=== PATIENT | female | born 1960 | race Caucasian/White ===

== ENCOUNTER 2021-07-05 00:13 | Day surgery (SDC) | payer BC, SELFPAY ==
[2021-06-22 14:18] VITALS: BMI 32.2
--- NOTE | 2021-07-05 07:34 | P.PNAN_ITS ---
Anes - Initial Pre Proc Eval Procedure: Operation Date: 07/05/21 09:00 Proposed Procedures p Screening Colonoscopy - Renzo Thompson MD Date/Time: 07/05/21 07:34 Surgeon: Renzo Thompson MD Pre Op Diagnosis: neoplasm screening Patient Data Age: 61 Gender: F Height: 1.57 m Weight: 80 kg Allergies Allergy/AdvReac Type Severity Reaction Status Date / Time No Known Allergies Allergy Unknown Verified 07/05/21 08:05 Home Medications Medication Instructions Recorded Confirmed Type escitalopram oxalate 20 mg tablet 30 mg PO DAILY tablet 12/23/19 07/05/21 History meclizine 25 mg tablet 25 mg PO TID #30 tablet 12/23/19 07/05/21 Rx Patient hx anesthesia problems: none Family hx anesthesia problems: none Results Review: All pre-operative results and documents have been reviewed as part of the pre-operative evaluation. [facility] Past Medical History Medical History (Updated 07/05/21 @ 08:23 by Renzo Thompson MD) Anxiety Asthma Hypertension SAURABH (obstructive sleep apnea) Surgical History Surgical History (Updated 07/05/21 @ 07:35 by Mohinder Ventura DO) History of History of hysterectomy Social History Social History Smoking packs per day: 1 Smoking cigarettes per day: 20.0 Years smoked: 15 Smoking pack-years: 15.00 Smoking status: Former smoker Tobacco type: cigarettes Alcohol intake: never Substance use: never Substance use type: does not use Living arrangements: with family Spiritual care concerns: No Anes - Eval Final PreProcedure Day of Procedure 07/05/21 07:34 Patient weight: obese Heart: regular rate and rhythm Lungs: clear to auscultation and normal air movement Airway: Mallampati scale class II Neurological: alert and oriented Last oral intake: >/= 8 hours ASA classification: III Emergent: no Anesthetic plan: proceed Anesthesia type and monitoring: general GIVS and standard monitoring Results Review: All pre-operative results and documents have been reviewed as part of the pre-operative evaluation. Informed Consent: The patient's anesthetic plan and its attendant risks and benefits were discussed with the patient/family/POA. Questions were solicited and answers provided to the satisfaction of the patient/family/POA.
[2021-07-05 08:08] VITALS: BP 133/68; PULSE 63; RESP 16; TEMP 36.2; O2SAT 98
[2021-07-05] MEDS: LACTATED RINGERS 1,000 ML 150 ML IV CONT (08:15)
--- NOTE | 2021-07-05 08:21 | P.CONGI_ITS ---
Assessment and Plan Assessment and plan (1) Encounter for screening colonoscopy: Code(s): Z12.11 - Encounter for screening for malignant neoplasm of colon Status: Acute Assessment and Plan: Patient presents for screening colonoscopy. She appears to be at average risk for colon polyps. GI Consult Note Consult date/time: 07/05/21 08:21 HPI: Donna Freitas is a 61 year old female Presents for screening colonoscopy. Patient's current weight appetite and bowel movements are normal. She denies abdominal pain. She has had no bleeding. Family history is noncontributory. Patient's last colonoscopy 10 years ago was reported to be unremarkable. Review of Systems Review of Systems: All systems reviewed & are unremarkable except as noted in HPI and below PMFSH Past Medical History Medical History (Updated 07/05/21 @ 08:23 by Renzo Thompson MD) Anxiety Asthma Hypertension SAURABH (obstructive sleep apnea) Surgical History Surgical History (Updated 07/05/21 @ 07:35 by Mohinder Ventura DO) History of History of hysterectomy Social History Social History Smoking packs per day: 1 Smoking cigarettes per day: 20.0 Years smoked: 15 Smoking pack-years: 15.00 Smoking status: Former smoker Tobacco type: cigarettes Alcohol intake: never Substance use: never Substance use type: does not use Living arrangements: with family Spiritual care concerns: No Meds Home Medications and Allergies Home Medications Medication Instructions Recorded Confirmed Type escitalopram oxalate 20 mg tablet 30 mg PO DAILY tablet 12/23/19 07/05/21 History meclizine 25 mg tablet 25 mg PO TID #30 tablet 12/23/19 07/05/21 Rx Allergies Allergy/AdvReac Type Severity Reaction Status Date / Time No Known Allergies Allergy Unknown Verified 07/05/21 08:05 Vital Signs Vital Signs - 24 hr 07/05/21 08:08 Temperature 97.1 F L Pulse Rate 63 Respiratory Rate 16 Blood Pressure 133/68 Pulse Oximetry 98 Exam Narrative: Physical exam reveals patient to be alert. Vital signs stable. HEENT exam is unremarkable. Patient is anicteric. Lungs are clear to aus cultation and percussion. Heart is without murmur or extra sounds. Abdominal exam bowel sounds are present soft nontender with no hepatosplenomegaly. Digital external rectal exam is normal.
[2021-07-05 08:57] VITALS: BP 103/60; PULSE 75; RESP 21; O2SAT 98
[2021-07-05 09:07] VITALS: BP 104/60; PULSE 71; RESP 14; O2SAT 100
[2021-07-05 09:17] VITALS: BP 116/68; PULSE 70; RESP 20; O2SAT 100
== END 2021-07-05 09:32 | disposition home or self-care (01) ==
LOC: ANHIMG 00:15 → ANHENDO 06:57
PROVIDERS: PCP Family Medicine; Visit Provider Internal Medicine Gastroenterology
PROC: 0DJD8ZZ Inspection of Lower Intestinal Tract, Via Natural or Artificial Opening Endoscopic (ICD-10-PCS; CPT 45378; principal; 2021-07-05 09:00)
DX: Z12.11 Encounter for screening for malignant neoplasm of colon (principal); K64.8 Other hemorrhoids; K57.30 Diverticulosis of large intestine without perforation or abscess without bleeding; J45.909 Unspecified asthma, uncomplicated; I10 Essential (primary) hypertension; G47.33 Obstructive sleep apnea (adult) (pediatric); F41.9 Anxiety disorder, unspecified; Z87.891 Personal history of nicotine dependence; E66.9 Obesity, unspecified; Z68.32 Body mass index [BMI] 32.0-32.9, adult
CPT/HCPCS: 45378; J2704; J7120

== ENCOUNTER → 2022-09-29 13:46 | Outpatient (CLI) | payer BC, SELFPAY ==
--- NOTE | ~2022-09-29 | US_ITS ---
EXAMINATION: US venous doppler [facility] DATE: 09/29/2022 14:09 INDICATION: Left lower limb swelling TECHNIQUE: Grayscale ultrasound images without and with compression and Doppler ultrasound images of the left lower extremity veins were obtained. COMPARISON: None. FINDINGS: The visualized portions of left common femoral vein, profunda (deep) femoral vein, femoral vein, popl iteal vein, peroneal veins, posterior tibial veins, gastrocnemius vein and greater saphenous vein out flow are patent. IMPRESSION: 1. No deep venous thrombosis in the left lower limb. Reviewed, dictated and finalized at location L.
== END ==
PROVIDERS: PCP Family Medicine; Visit Provider Family Medicine
DX: R60.0 Localized edema (principal)
CPT/HCPCS: 93971